=== PATIENT | male | born 1965 | race Caucasian/White ===

== ENCOUNTER 2021-06-14 07:38 | Emergency (ER) | payer BC ==
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
[2021-06-14] MEDS ORDERED: Sodium Chloride 0.9% 2.5 ML Syringe FLUSH PRN (07:59)
[2021-06-14] MEDS ORDERED: Sodium Chloride 0.9% 10 ML Syringe FLUSH PRN (07:59)
--- NOTE | 2021-06-14 08:31 | CT ---
HISTORY: Fall, loss of consciousness. TECHNIQUE: Noncontrast head CT. COMPARISON: No prior. FINDINGS: There is no acute intracranial hemorrhage or acute ischemic infarct. No mass effect or midline shift. No hydrocephalus. No extra-axial collection or hematoma. No acute loss of licona-white differentiation. The mastoid air cells are clear. Mild mucosal thickening involving the maxillary sinuses. No skull fracture. IMPRESSION: No acute intracranial injury or disease. Please note that all CT scans at this facility use dose modulation, iterative reconstruction, and/or weight-based dosing when appropriate to reduce radiation dose to as low as reasonably achievable. Dictated by Sunday Sanchez MD @ 06/14/2021 8:29:02 AM (Electronically Signed)
[2021-06-14 08:49] LABS: CARBON DIOXIDE,CO2 25.6 mmol/L (21.0-32.0)
[2021-06-14] MEDS ORDERED: Sodium Chloride 0.9% 1,000 ML IV ONE (08:52)
== END 2021-06-14 10:30 | disposition home or self-care (01) ==
LOC: MW.ED 07:38
DX: R55 Syncope and collapse (principal); E86.0 Dehydration
CPT/HCPCS: 36415; 70450; 80053; 83735; 85025; 93005; 99284; J7030